=== PATIENT | male | born 1990 | race Caucasian/White ===

== ENCOUNTER 2017-11-04 17:01 | Emergency (ER) | payer BC, OTHER ==
[~2017-11-04] VITALS: Ht 177.8 cm; Wt 88.0 kg
[2017-11-04 17:07] VITALS: BP 137/80
[2017-11-04] MEDS ORDERED: HYDR-565 PO (17:13)
== END 2017-11-04 17:27 | disposition home or self-care (01) ==
LOC: ER 17:02
DX: K08.89 Other specified disorders of teeth and supporting structures (principal)
CPT/HCPCS: 99283

== ENCOUNTER 2017-11-04 21:45 | Emergency (ER) | payer BC ==
[~2017-11-04] VITALS: Ht 177.8 cm; Wt 77.0 kg
[~2017-11-04 21:45] MED LIST: HYDR-565 PO
[2017-11-04] MEDS ORDERED: ketorolac tromethamine 15mg/ml inj. IM ONE (22:05)
[2017-11-04 22:37] VITALS: BP 119/94
== END 2017-11-04 22:39 | disposition home or self-care (01) ==
LOC: ER 21:46
DX: S02.5XXA Fracture of tooth (traumatic), initial encounter for closed fracture (principal); X58.XXXA Exposure to other specified factors, initial encounter; Y93.89 Activity, other specified; Y92.89 Other specified places as the place of occurrence of the external cause; Y99.8 Other external cause status
CPT/HCPCS: 96372; 99283; J1885